=== PATIENT | female | born 1995 | race Caucasian/White ===

== ENCOUNTER 2016-11-17 13:46 | Emergency (ER) | payer OTHER ==
[~2016-11-17] VITALS: Ht 162.6 cm; Wt 54.5 kg
[2016-11-17 13:53] VITALS: TEMP 99.1
[2016-11-17] MEDS ORDERED: LAMICTAL 100MG100 MG PO (13:57)
[2016-11-17] MEDS ORDERED: ZOLOFT 100MG100 MG PO (13:57)
[2016-11-17] MEDS ORDERED: BUSPAR10 MG PO (13:57)
[2016-11-17 14:34] LABS: BASO # 0.1 (0.0-0.2); BASO % 0.5 % (0.0-2.0); EOS % 0.3 % (0-4.0); GRAN # 12.4 (1.4-6.5); GRAN % 81.1 % (42.2-75.2); HEMATOCRIT 40.5 % (37.0-47.0); HEMOGLOBIN 14.3 g/dl (12.5-16.0); LYMPH # 2.3 (1.2-3.4); LYMPH % 15.1 % (20.0-51.0); MEAN CELL VOLUME 88 fl (80.0-100.0); MEAN CORPUSCULAR HEMOGLOBIN 31 pg (27.0-31.0); MEAN CORPUSCULAR HGB CONC 35 g/dl (33.0-37.0); MEAN PLATELET VOLUME 8.5 fl (7.4-10.4); MONO # 0.4 (0.1-0.6); MONO % 2.8 % (1.7-9.3); PLATELET COUNT 291 K/mm3 (130-400); RED BLOOD COUNT 4.62 M/mm3 (4.10-5.30); REDCELL DISTRIBUTION WIDTH-CV 11.2 % (11.5-14.5); WHITE BLOOD COUNT 15.3 K/mm3 (4.8-10.8)
[2016-11-17 14:42] LABS: CALCIUM 9.7 mg/dL (8.4-10.2); CREATININE, serum 0.71 mg/dL (0.52-1.25); POTASSIUM 3.9 mmol/L (3.4-5.0)
[2016-11-17 14:53] LABS: PH 6 (5-8); SQUAMOUS EPITHELIAL 0-2 /hpf; URINE APPEARANCE Clear; URINE BACTERIA Rare /hpf; URINE BILIRUBIN Negative (NEGATIVE); URINE BLOOD Negative (NEGATIVE); URINE COLOR Yellow; URINE GLUCOSE Negative (NEGATIVE); URINE KETONE Negative (NEGATIVE); URINE UROBILINOGEN Negative (NEGATIVE); URINE WBC 0-2 /hpf
[2016-11-17] MEDS ORDERED: ULTRAM 50MG TAB50 MG PO (17:34)
[2016-11-17] MEDS ORDERED: PERCOCET 325 MG1 TA2 PO (17:34)
[2016-11-17 18:00] VITALS: BP 115/74; PULSE 99
== END 2016-11-17 18:00 | disposition home or self-care (01) ==
LOC: COL.ER 13:46
PROVIDERS: Emergency Medicine
DX: R10.2 Pelvic and perineal pain (principal); R10.31 Right lower quadrant pain
CPT/HCPCS: J1170; J2405; J7030; Q9967

== ENCOUNTER 2021-05-13 22:02 | Outpatient (CLI) | payer MEDICAID ==
[~2021-05-13] VITALS: Ht 165.1 cm; Wt 81.7 kg
[~2021-05-13 22:02] MED LIST: BUSPAR10 MG PO; LAMICTAL 100MG100 MG PO; PERCOCET 325 MG1 TA2 PO; ULTRAM 50MG TAB50 MG PO; ZOLOFT 100MG100 MG PO
--- NOTE | 2021-05-13 22:15 | NUR ---
Ambulatory to unit for labor assessment, accompanied by significant other. Oriented to room, monitor, plan of care. Questions invited and answered. Pt reports 'contractions for 2 hours, mostly in my back, and it's hard to catch my breath" Pt HR 123, SPO2 97-98%. SVE 2/70%, with no vaginal bleeding or LOF.
[2021-05-13 22:25] VITALS: PULSE 107; TEMP 99.2
[2021-05-13 23:30] VITALS: BP 113/67; PULSE 106
== END 2021-05-13 23:55 | disposition home or self-care (01) ==
LOC: LDRO 22:02 → LDR 22:02 → LDRO 23:55
DX: O26.893 Other specified pregnancy related conditions, third trimester (principal); Z3A.37 37 weeks gestation of pregnancy
CPT/HCPCS: OP

== ENCOUNTER 2021-05-29 22:44 | Outpatient (CLI) | payer MEDICAID ==
[~2021-05-29] VITALS: Ht 165.1 cm; Wt 83.2 kg
--- NOTE | 2021-05-29 22:45 | NUR ---
Ambulatory to unit for assessment. Oriented to room, monitor, plan of care. PT reports "swellling in my feet for 48hrs and a headache off on and for 24 hours" Pt reports "i took 2 tylenol pm and 2220 and my headache ins't any better" Pt denies vaginal bleeding or loss of fluid, SVE as noted. 1+ pitting pedal edema noted.
[2021-05-29 23:00] VITALS: BP 120/81; PULSE 97
[2021-05-29 23:50] VITALS: BP 106/71; PULSE 98
== END 2021-05-30 00:35 | disposition home or self-care (01) ==
LOC: COL.ER 22:44 → LDRO 22:44 → EDSTATUS 22:51 → LDR 23:16 → LDRO 05-30 00:35
DX: O26.893 Other specified pregnancy related conditions, third trimester (principal); R51.9 Headache, unspecified; Z3A.39 39 weeks gestation of pregnancy
CPT/HCPCS: OP

== ENCOUNTER 2021-06-05 05:43 | Inpatient (IN) | payer MEDICAID ==
[2021-06-05] VITALS (43 sets, daily range): BP systolic 82–129; BP diastolic 52–84; PULSE 69–116; TEMP 98.2–98.4
[~2021-06-05] VITALS: Ht 165.1 cm; Wt 83.2 kg
--- NOTE | 2021-06-05 10:00 | NUR ---
Ambulatory to unit. Admits to L&D for induction of labor, accompanied by significant other, father of baby, "Manav." Patient states, "I'm so nervous." Introduced to staff present at time of admission. Oriented to room.
[2021-06-05] MEDS ORDERED: PRENATAL TABLET PO (10:13)
--- NOTE | 2021-06-05 10:15 | NUR ---
Denies any S/S Covid-19, or recent exposure. Refuses Covid swab at this time.
--- NOTE | 2021-06-05 10:30 | NUR ---
IV start attempt, unsuccessful to left forearm. Note patient having reported panic attack while this filing writer attempting IV start. Discussion about importance of breathing, needs for oxygenation. Patient requests, "Can you just not do anything until my mom gets here?" Will respect patient wishes and notify
--- NOTE | 2021-06-05 11:10 | NUR ---
in. Explains to patient with late induction, need to get things started, not to wait for her mother's arrival. Patient tearful, verbalizes understanding.
--- NOTE | 2021-06-05 11:15 | NUR ---
1115-Pit start @ 2mU/min after IV access obtained. 1120-SVE by /-2, attempts to AROM, patient unable to relax enough to give room. Patient tearful, crying with exam. Note patient mother at bedside, encouraging patient with anxiety.
[2021-06-05 11:41] LABS: BASO % 0.4 % (0.0-2.0); EOS # 0.1 (0.0-0.7); EOS % 1.1 % (0-4.0); GRAN # 6.8 (1.4-6.5); GRAN % 73.5 % (42.2-75.2); HEMATOCRIT 37.7 % (37.0-47.0); HEMOGLOBIN 12.5 g/dl (12.5-16.0); LYMPH # 1.7 (1.2-3.4); LYMPH % 18.4 % (20.0-51.0); MEAN CELL VOLUME 87 fl (80.0-100.0); MEAN CORPUSCULAR HEMOGLOBIN 29 pg (27.0-31.0); MEAN CORPUSCULAR HGB CONC 33 g/dl (33.0-37.0); MONO # 0.6 (0.1-0.6); MONO % 6.1 % (1.7-9.3); PLATELET COUNT 301 K/mm3 (130-400); RED BLOOD COUNT 4.33 M/mm3 (4.10-5.30); REDCELL DISTRIBUTION WIDTH-CV 13.2 % (11.5-14.5)
--- NOTE | 2021-06-05 12:45 | NUR ---
Positioned on knees elbows following bathroom trip, as noted, patient c/o back labor, having recurrent late decels while sitting upright on birthing ball.
--- NOTE | 2021-06-05 13:15 | NUR ---
Repositioned to left lateral with peanut ball.
--- NOTE | 2021-06-05 18:04 | NUR ---
Repositioned from wedged left to wedged right, after noting 3 consecutive late decelerations.
--- NOTE | 2021-06-05 19:00 | NUR ---
Patient more uncomfortable and breathing through contractions, assisted to birthing ball. FHR intermittently monitoring in this position.
[2021-06-05 19:38] LABS: TRICYCLIC ANTIDEPRESS URINE NEGATIVE
--- NOTE | 2021-06-05 20:00 | NUR ---
5 Andre to patient room to place epidural. Patient sits upright on the side of the bed for epidural placement. FHR difficult to monitor in this position. 2000 Single shot administered, see anesthesia record for details of placement.
--- NOTE | 2021-06-05 23:10 | NUR ---
2037 SVE - complete/+2. 2310 Patient pushing with contractions.
[2021-06-06] VITALS (16 sets, daily range): BP systolic 94–131; BP diastolic 59–86; PULSE 69–115; TEMP 98.1–98.6
--- NOTE | 2021-06-06 00:46 | NUR ---
0039 Dr. Dutton to room for delivery. Patient prepped for delivery and continues to push with contractions. 0046 Spontaneous vaginal delivery of viable female infant by Dr. Dutton . Cord clamped and cut and infant to the care of the nursery RN. 0049 Spontaneous delivery of placenta by Dr. Dutton. Pitocin infusing at 333 ml/hr per orders and protocol. Fundus firm with massage, lochia WNL.
--- NOTE | 2021-06-06 09:35 | NUR ---
Initial visit attempt; Family resting, Supervisory Clerk left card of congratulations and God's blessings and information regarding the availability of spiritual care at our hospital.
--- NOTE | 2021-06-06 14:40 | NUR ---
Embroidery Finisher responded to consult in the OB for patient who has a history of marijuana use and a history of bipolar disorder and thoughts of self harm. BRIAN met with patient and father of baby, Manav ([id number]#[phone]) who is at bedside. Patient lives in [place] with her parents, Saúl and Andreea Shah. Manav also lives in [place] and reports his parents are also local. Manav advised that both sets of parents are excited to be grandparents and are looking forward to meeting [place]. Patient reports that she has "two of everything" and has plenty of diapers, wipes, and formula. Patient also plans to apply for WIC with the [facility] upon discharge. SW educated patient on other resources provided by [facility] and also provided the [facility] Resource Guide. SW addressed patient's mental health history and patient advised she goes to [facility] for medication management. Patient does not have a regular provider and has to see an cone operator provider due to short staffing. Patient states she has an appointment on at [place]. Patient does not currently receive any counseling services but was interested in having a referral sent to [facility]. SW contacted [facility] and left a message for patient coordinator. Patient advised she has no concerns about returning home at this time. BRIAN spoke with RN, Moira who advised patient is having a better day today and is agreeable to take her medications tonight. Per nursing, patient had refused her medications the night before. BRIAN reviewed patient's chart and her UDS was negative during and upon admission. Cord blood is pending. BRIAN collaborated the above information to Dr. Gomez.
[2021-06-07 03:00] VITALS: BP 101/52; PULSE 81; TEMP 98.1
[2021-06-07 08:03] VITALS: BP 114/68; PULSE 76; TEMP 98.1
[2021-06-07] MEDS ORDERED: IBU600 MG PO (08:22)
[2021-06-07] MEDS ORDERED: PROZAC 20MG20 MG PO (08:23)
--- NOTE | 2021-06-08 10:02 | NUR ---
Scalping Machine Operator followed up with [facility] and provided patient's contact information for referral. SW also received documentation that cord blood testing was cancelled.
--- NOTE | 2021-06-09 12:20 | NUR ---
Patient's infant's cord blood was negative for illegal drugs in system.
== END 2021-06-07 11:20 | disposition home or self-care (01) | DRG 807 ==
LOC: ZCOL.LAB → EDSTATUS 09:54 → LDR 09:55 → OB 09:55 → LDR 09:56 → OB 06-06 03:00
PROVIDERS: ADMIT Obstetrics & Gynecology
PROC: 10E0XZZ Delivery of Products of Conception, External Approach (ICD-10-PCS; principal; 2021-06-06)
PROC: 0HQ9XZZ Repair Perineum Skin, External Approach (ICD-10-PCS; 2021-06-06)
PROC: 3E033VJ Introduction of Other Hormone into Peripheral Vein, Percutaneous Approach (ICD-10-PCS; 2021-06-06)
PROC: 10907ZC Drainage of Amniotic Fluid, Therapeutic from Products of Conception, Via Natural or Artificial Opening (ICD-10-PCS; 2021-06-06)
DX: O48.0 Post-term pregnancy (principal); Z37.0 Single live birth; Z3A.40 40 weeks gestation of pregnancy; O99.52 Diseases of the respiratory system complicating childbirth; O99.344 Other mental disorders complicating childbirth; F41.9 Anxiety disorder, unspecified; F32.9 Major depressive disorder, single episode, unspecified; O70.0 First degree perineal laceration during delivery
CPT/HCPCS: J2590; J7120

== ENCOUNTER → 2021-11-02 | Outpatient (CLI) | payer MEDICAID ==
[~2021-11-02] MED LIST changes: +IBU600 MG PO; +PRENATAL TABLET PO; +PROZAC 20MG20 MG PO
== END ==
LOC: COL.CARD 09:32
DX: R56.9 Unspecified convulsions (principal); R55 Syncope and collapse

== ENCOUNTER 2023-10-16 14:28 | Outpatient (CLI) | payer MEDICAID ==
--- NOTE | 2023-10-16 14:30 | NUR ---
PT AMBULATORY TO UNIT BY SELF, ORIENTED TO ROOM, CHANGED INTO GOWN, AND ORIENTED TO PLAN OF CARE. EFM CAT 1, PT VS STABLE. PT DENIES LOF, DENIES FEELING CTX, REPORTS POSITIVE MOVEMENT. PT MAIN COMPLAINTS ARE FEELING "CHEST TIGHTNESS LIKE HEAVY WEIGHT ON CHEST, THEY LAST 30 SEC AND IT'S HARD TO BREATHE" INCREASED LAST 48 HRS, REPORTS SEEING "STARS RANDOMLY," AND GETS "SUPER HOT WITH NAUSEA." 1520 THIS RN REPORTS TO . TELEPHONE ORDER MONITOR FOR A BIT LONGER, IF NO CHANGE DISCHARGE HOME.
[2023-10-16] MEDS ORDERED: PROZAC40 MG PO (14:58)
[2023-10-16 15:00] VITALS: BP 104/67; PULSE 107; TEMP 99.3
[2023-10-16 15:30] VITALS: BP 115/72; PULSE 97
[2023-10-16 16:00] VITALS: BP 109/74; PULSE 93
--- NOTE | 2023-10-16 16:00 | NUR ---
PT AMBULATORY OFF UNIT, VS STABLE, PT GIVEN DISCHARGE ORDERS AND TOLD TO CALL BACK WITH ANY QUESTIONS OR CONCERNS.
== END 2023-10-16 16:00 | disposition home or self-care (01) ==
LOC: LDRO 14:28
DX: O99.891 Other specified diseases and conditions complicating pregnancy (principal); R06.02 Shortness of breath; Z3A.34 34 weeks gestation of pregnancy